=== PATIENT | male | born 1955 | race Caucasian/White ===

== ENCOUNTER 2022-12-17 06:19 | Day surgery (SDC) | payer MEDICARE, MEDICAID ==
[2022-12-17] VITALS (11 sets, daily range): BP systolic 113–145; BP diastolic 72–84
[~2022-12-17] VITALS: Ht 167.6 cm; Wt 72.6 kg
[2022-12-17] MEDS ORDERED: LIDOcaine 1% 30ml preserv. free vial SQ PRN (06:40)
[2022-12-17] MEDS ORDERED: PRAZ5CAP2 (06:59)
[2022-12-17] MEDS ORDERED: LEVO150T8 PO (06:59)
[2022-12-17] MEDS ORDERED: AMLO5TAB PO (07:09)
[2022-12-17] MEDS ORDERED: GABA-530 PO (07:09)
[2022-12-17] MEDS ORDERED: FURO-150 PO (07:09)
[2022-12-17] MEDS ORDERED: MULT-1085 PO (07:09)
[2022-12-17] MEDS ORDERED: TRAM50TA2 PO (07:09)
[2022-12-17] MEDS ORDERED: KAY15L PO (07:09)
[2022-12-17] MEDS ORDERED: ESCI-8 PO (07:09)
[2022-12-17] MEDS: albumin 25% 100mL bottle x 1 IV PRN ×2 (08:32→09:09)
== END 2022-12-17 11:15 ==
LOC: SSTAY O 06:19
PROVIDERS: ATTEND Radiology Vascular & Interventional Radiology
DX: K70.31 Alcoholic cirrhosis of liver with ascites (principal); E78.5 Hyperlipidemia, unspecified; I10 Essential (primary) hypertension; D64.9 Anemia, unspecified; N18.9 Chronic kidney disease, unspecified; Z98.890 Other specified postprocedural states; Z79.899 Other long term (current) drug therapy
CPT/HCPCS: 49083; P9047; A6258

== ENCOUNTER 2023-01-04 07:29 | Day surgery (SDC) | payer MEDICARE, MEDICAID ==
[2023-01-04] VITALS (20 sets, daily range): BP systolic 80–99; BP diastolic 45–63
[~2023-01-04] VITALS: Ht 167.6 cm; Wt 80.0 kg
[~2023-01-04 07:29] MED LIST: AMLO5TAB PO; ESCI-8 PO; FURO-150 PO; GABA-530 PO; KAY15L PO; LEVO150T8 PO; MULT-1085 PO; PRAZ5CAP2; TRAM50TA2 PO
[2023-01-04] MEDS ORDERED: LIDOcaine 1% 30ml preserv. free vial SQ STA (07:39)
[2023-01-04] MEDS ORDERED: normal saline 1000ml 1,000 ML IV PRN (07:50)
[2023-01-04] MEDS ORDERED: CefTRIAXone 2gm/D5W 50ml BAG 50 ML IV ONE (10:00)
[2023-01-04] MEDS: albumin 25% 100mL bottle x 1 IV PRN ×4 (10:01→13:54)
[2023-01-04] MEDS ORDERED: AMOX-580 PO (10:05)
--- NOTE | 2023-01-04 11:19 | NUR ---
Notified Liam REN that BP trending in 85/90 systolic. New order to bolus 500 mL x 2 to maintain SBP > 90 mL.
--- NOTE | 2023-01-04 12:32 | NUR ---
SBP trending in 80's. New order for 25% 100 mL albumin x 1. Will continue to monitor.
--- NOTE | 2023-01-04 13:50 | NUR ---
New order for 25% 100 mL albumin x 1. OK to discharge patient when SBP > 85.
--- NOTE | 2023-01-04 14:22 | NUR ---
Notified Liam REN that BP 85/62 (65). Patient asymptomatic with no complaints of dizziness. Per GELA Little OK to D/C patient.
== END 2023-01-04 14:47 | disposition home or self-care (01) ==
LOC: SSTAY O 07:29
PROVIDERS: ATTEND Radiology Vascular & Interventional Radiology
DX: K70.31 Alcoholic cirrhosis of liver with ascites (principal); T85.71XA Infection and inflammatory reaction due to peritoneal dialysis catheter, initial encounter; E78.5 Hyperlipidemia, unspecified; I12.0 Hypertensive chronic kidney disease with stage 5 chronic kidney disease or end stage renal disease; N18.6 End stage renal disease; D63.8 Anemia in other chronic diseases classified elsewhere; Z98.890 Other specified postprocedural states; F10.20 Alcohol dependence, uncomplicated; F12.90 Cannabis use, unspecified, uncomplicated; F14.90 Cocaine use, unspecified, uncomplicated; F11.90 Opioid use, unspecified, uncomplicated; Y83.8 Other surgical procedures as the cause of abnormal reaction of the patient, or of later complication, without mention of misadventure at the time of the procedure; Y92.89 Other specified places as the place of occurrence of the external cause
CPT/HCPCS: 49083; 49422; C1729; J0696; J7030; P9047; A6258; A6449

== ENCOUNTER 2023-01-11 08:36 | Day surgery (SDC) | payer MEDICARE, MEDICAID ==
[2023-01-11] VITALS (9 sets, daily range): BP systolic 91–120; BP diastolic 52–75
[~2023-01-11] VITALS: Ht 167.6 cm; Wt 75.5 kg
[~2023-01-11 08:36] MED LIST changes: +AMOX-580 PO
[2023-01-11] MEDS ORDERED: LIDOcaine 1% 30ml preserv. free vial SQ STA (08:41)
[2023-01-11] MEDS: albumin 25% 100mL bottle x 1 IV PRN ×3 (09:42→10:43)
== END 2023-01-11 12:30 | disposition home or self-care (01) ==
LOC: SSTAY O 08:36
PROVIDERS: ATTEND Radiology Vascular & Interventional Radiology
DX: K70.31 Alcoholic cirrhosis of liver with ascites (principal); E78.5 Hyperlipidemia, unspecified; I12.9 Hypertensive chronic kidney disease with stage 1 through stage 4 chronic kidney disease, or unspecified chronic kidney disease; N18.9 Chronic kidney disease, unspecified; D63.8 Anemia in other chronic diseases classified elsewhere; F12.91 Cannabis use, unspecified, in remission; F11.91 Opioid use, unspecified, in remission; F14.91 Cocaine use, unspecified, in remission; F15.91 Other stimulant use, unspecified, in remission; F10.20 Alcohol dependence, uncomplicated; Z98.890 Other specified postprocedural states; Z79.899 Other long term (current) drug therapy
CPT/HCPCS: 49083; J3490; P9047; A6258

== ENCOUNTER 2023-01-25 09:15 | Day surgery (SDC) | payer MEDICARE, MEDICAID ==
[2023-01-25] VITALS (7 sets, daily range): BP systolic 93–102; BP diastolic 55–62
[~2023-01-25] VITALS: Ht 167.6 cm; Wt 70.9 kg
[~2023-01-25 09:15] MED LIST changes: -AMOX-580 PO
[2023-01-25] MEDS ORDERED: LIDOcaine 1% 30ml preserv. free vial SQ STA (09:18)
[2023-01-25] MEDS ORDERED: CARV3.122 PO (09:34)
[2023-01-25] MEDS ORDERED: BUME1TAB8 PO (09:34)
[2023-01-25] MEDS ORDERED: ATOR-2 PO (09:34)
[2023-01-25] MEDS ORDERED: FERR325T29 PO (09:34)
[2023-01-25] MEDS ORDERED: LIDOcaine 1%/PF 5ML 10 MG/ML VIAL SQ ONE (10:45)
[2023-01-25] MEDS: albumin 25% 100mL bottle x 1 IV PRN ×2 (11:33→12:08)
[2023-01-25] MEDS ORDERED: calcium carbonate 500mg chew tablet PO SCH (12:30)
== END 2023-01-25 12:50 | disposition home or self-care (01) ==
LOC: SSTAY O 09:15
PROVIDERS: ATTEND Radiology Vascular & Interventional Radiology
DX: K70.31 Alcoholic cirrhosis of liver with ascites (principal); F10.20 Alcohol dependence, uncomplicated; Z98.890 Other specified postprocedural states; Z79.899 Other long term (current) drug therapy
CPT/HCPCS: 49083; J3490; P9047; A6258; A6449

== ENCOUNTER 2023-02-09 08:31 | Day surgery (SDC) | payer MEDICARE, MEDICAID ==
[~2023-02-09] VITALS: Ht 167.6 cm; Wt 60.4 kg
[2023-02-09] VITALS (9 sets, daily range): BP systolic 93–113; BP diastolic 50–69
[~2023-02-09 08:31] MED LIST changes: +ATOR-2 PO; +BUME1TAB8 PO; +CARV3.122 PO; +FERR325T29 PO
[2023-02-09] MEDS ORDERED: LIDOcaine 1%/PF 5ML 10 MG/ML VIAL SQ ONE (08:35)
[2023-02-09] MEDS: albumin 25% 100mL bottle x 1 IV PRN ×2 (09:23→10:08)
== END 2023-02-09 11:40 | disposition home or self-care (01) ==
LOC: SSTAY O 08:31
PROVIDERS: ATTEND Radiology Vascular & Interventional Radiology
DX: K70.31 Alcoholic cirrhosis of liver with ascites (principal); E78.5 Hyperlipidemia, unspecified; D63.8 Anemia in other chronic diseases classified elsewhere; I12.9 Hypertensive chronic kidney disease with stage 1 through stage 4 chronic kidney disease, or unspecified chronic kidney disease; N18.9 Chronic kidney disease, unspecified; F10.20 Alcohol dependence, uncomplicated; F12.91 Cannabis use, unspecified, in remission; F14.91 Cocaine use, unspecified, in remission; F15.91 Other stimulant use, unspecified, in remission; F11.91 Opioid use, unspecified, in remission; Z98.890 Other specified postprocedural states; Z79.899 Other long term (current) drug therapy
CPT/HCPCS: 49083; J3490; P9047; A6258; A6449

== ENCOUNTER 2023-02-26 09:27 | Day surgery (SDC) | payer MEDICARE, MEDICAID ==
[~2023-02-26] VITALS: Ht 167.6 cm; Wt 63.9 kg
[2023-02-26] VITALS (9 sets, daily range): BP systolic 105–138; BP diastolic 48–80
[2023-02-26] MEDS ORDERED: LIDOcaine 1% 30ml preserv. free vial SQ STA (09:30)
[2023-02-26] MEDS ORDERED: albumin 25% 100mL bottle x 1 IV PRN (09:55)
== END 2023-02-26 12:05 ==
LOC: SSTAY O 09:27
PROVIDERS: ATTEND Radiology Vascular & Interventional Radiology
DX: K70.31 Alcoholic cirrhosis of liver with ascites (principal); E78.5 Hyperlipidemia, unspecified; D63.8 Anemia in other chronic diseases classified elsewhere; I12.9 Hypertensive chronic kidney disease with stage 1 through stage 4 chronic kidney disease, or unspecified chronic kidney disease; N18.9 Chronic kidney disease, unspecified; Z98.890 Other specified postprocedural states; F10.20 Alcohol dependence, uncomplicated; F12.91 Cannabis use, unspecified, in remission; F14.91 Cocaine use, unspecified, in remission; F11.91 Opioid use, unspecified, in remission; F15.91 Other stimulant use, unspecified, in remission; Z79.899 Other long term (current) drug therapy
CPT/HCPCS: 49083; C1729; J3490; J7120; P9047; A6258; A6449